=== PATIENT | female | born 1990 | race Caucasian/White ===

== ENCOUNTER 2023-06-09 05:02 | Outpatient (CLI) | payer MEDICAID, SELFPAY ==
[2023-06-09 15:12] LABS: Abs Immature Grans 0.04 10^3/uL (0.0-0.06); Absolute Basophil Count 0.06 10^3/uL (0.0-0.2); Absolute Eosinophil Count 0.19 10^3/uL (0.0-0.7); Absolute Lymphocyte Count 1.92 10^3/uL (1.2-3.4); Absolute Monocyte Count 0.58 10^3/uL (0.1-0.8); Absolute Neutrophil Count 6.59 10^3/uL (1.2-6.7); Basophils % 0.6; HGB 13.5 g/dL (11.2-15.7); Immature Grans % 0.4; Lymphocytes % 20.5; MCH 29.7 pg (27.0-33.0); MCHC 33.8 % (32.0-36.0); MCV 88 fL (80-95); MPV 9.4 fL (8.0-11.0); Monocytes % 6.2; Neutrophils % 70.3; Platelet Count 277 10^3/uL (130-400); RBC 4.54 10^6/uL (3.93-5.22); RDW 11.9 % (11.7-14.6); RDW-SD 38.4 fL; WBC 9.38 10^3/uL (4.4-10.8)
[2023-06-10 09:09] LABS: Hepatitis B Surface Ag Negative (Negative)
[2023-06-10 09:53] LABS: Hepatitis C Ab w Rflx HCV PCR Negative (Negative)
[2023-06-10 10:25] LABS: HIV-1/2 Ag & Ab Screen Negative (Negative)
[2023-06-10 11:31] LABS: Varicella IgG Antibody Positive (See Note)
[2023-06-10 11:41] LABS: Rubella IgG Ab (UVM) Positive (See Note)
[2023-06-11 13:29] LABS: Syphilis IgG w/Reflex Nonreactive (Nonreactive)
== END 2023-06-09 05:03 | disposition home or self-care (01) ==
LOC: LBO 05:02
PROVIDERS: Advanced Practice Midwife; PCP Registered Nurse; Visit Provider Advanced Practice Midwife
DX: Z34.91 Encounter for supervision of normal pregnancy, unspecified, first trimester (principal); Z3A.10 10 weeks gestation of pregnancy
CPT/HCPCS: 36415; 86787; 86803; 86850; 86900; 86901; 87340; 87389; 85025; 86762; 86780

== ENCOUNTER 2023-06-09 15:19 | Outpatient (REF) | payer MEDICAID, SELFPAY ==
--- NOTE | 2023-06-09 14:00 | PAPFT_PTH ---
PATIENT: Stefany Graves LOC: [facility] U#:[id number] AGE/SX: 33/F ROOM: RE06/09/[address]: Fe Johnson : 1990 BED: DIS: 06/09/2023 SPEC #: [id number] RECD: 06/09/23 18:28 STATUS: PAIGEFer REQ #: [id number] PAYAM: 06/09/23 14:[address]: Fe Johnson DEPT: [facility] Cytology RECD BY: Kelsea Cervantes ENTERED: 06/09/23 18:29 SP TYPE: PAPFT OTHR DR: Kezia Pacheco Tissues: 1 - CX/ENDOCX FOR PAP SMEARS Procedures: PAP THIN PREP/UVM Screening HPV DNA PROBE Comments: [id number]
[2023-06-09 16:32] LABS: *AMPHETAMINES SCREEN URINE Negative (Negative); *BARBITURATES SCREEN URINE Negative (Negative); *BENZODIAZEPINES SCREEN URINE Negative (Negative); Cannabinoids THC Negative (Negative); Cocaine Screen,Urine Negative (Negative); METHADONE URINE SCREEN Negative (Negative); OPIATES URINE SCREEN Negative (Negative)
[2023-06-09 16:33] LABS: Tricyclic Antidepressants Negative (Negative)
[2023-06-10 13:46] LABS: Chlamydia Result Negative (Negative); GC Result Negative (Negative)
[2023-06-15 15:22] LABS: Buprenorphine Negative ng/mL (Cutoff: 5.0); Norbuprenorphine Negative ng/mL (Cutoff: 2.5)
== END 2023-06-09 15:20 | disposition home or self-care (01) ==
LOC: LBN 15:19
PROVIDERS: PCP Registered Nurse; Visit Provider Advanced Practice Midwife
DX: Z34.91 Encounter for supervision of normal pregnancy, unspecified, first trimester (principal); R82.998 Other abnormal findings in urine
CPT/HCPCS: 80307; 80348; 87491; 87591; 88142; 87086; 87480; 87510; 87624; 87660

== ENCOUNTER → 2023-06-10 00:29 | Outpatient (CLI) | payer MEDICAID, SELFPAY ==
--- NOTE | 2023-06-10 07:45 | DI.US_ITS ---
Exam(s) US OB 1ST TRIMESTER EXAM: US OB 1ST TRIMESTER CLINICAL HISTORY: ,confirm dating, z34.90. COMPARISON: US POCUS EXAM from 05/19/2023 TECHNIQUE: Transabdominal Transvaginal first trimester obstetrical ultrasound performed. FINDINGS: Sonographic images demonstrate a single intrauterine gestation. A yolk sac and pole are seen. Sonographically assessed gestational age based upon crown-rump length of 3.7 cm is: 10+ 4 weeks Estimated date of delivery based on this ultrasound is: 06 January 2024 Estimated date of delivery based upon LMP: 25 December 2023 heart rate motion is Dopplered at: 161 bpm. No free fluid identified. Both ovaries appear sonographically normal. Pelvic Measurments Uterus: 10.5 x 7.2 x 9.2 cm Rt Ovary: 2.9 x 2.7 x 2.1 cm Lt Ovary: 3.2 x 2.2 x 3.2 cm IMPRESSION: Single live intrauterine gestation with crown-rump length measurements corresponding to 10 weeks 4 da ys. DATA REPOSITORY:
== END ==
PROVIDERS: PCP Registered Nurse; Visit Provider Advanced Practice Midwife
DX: Z34.91 Encounter for supervision of normal pregnancy, unspecified, first trimester (principal)
CPT/HCPCS: 76801

== ENCOUNTER → 2023-08-24 03:35 | Outpatient (CLI) | payer MEDICAID, SELFPAY ==
--- NOTE | 2023-08-24 08:30 | DI.US_ITS ---
Exam(s) US OB 2-3 TRIMESTER EXAM: US OB 2-3 TRIMESTER CLINICAL HISTORY: anatomy survey,Z34.90. TECHNIQUE: Transabdominal obstetrical ultrasound performed. COMPARISON: US POCUS EXAM from 05/19/2023 US US OB 1ST TRIMESTER from 06/10/2023 FINDINGS: Number of fetuses: One. position: Variable Placental grade: 1 Placental location: Fundal no evidence of previa. BIOMETRIC DATA: BPD: 50mm = 20 1+1 weeks HC: 183mm = 20+ 5 weeks AC: 150mm = 20+ 1 weeks FL: 35mm = 20+ 6 weeks Cisterna Magna: 3.4 mm Cerebellum: 2 cm EFW: 361 grms 29% Composite Age: 20+ 5 weeks EDC by US: 06 February 2024 Heart Rate: 145BPM Amniotic fluid : Amount of fluid is within normal limits. ANATOMICAL SURVEY: Four-chambered heart: Unremarkable. LVOT: Unremarkable. RVOT: Unremarkable. Left-sided stomach: Unremarkable. urinary bladder: Unremarkable. Bilateral kidneys: Unremarkable. Three-vessel cord: Unremarkable. Cord insertion: Unremarkable. Posterior fossa:Unremarkable. ventricles: Unremarkable. nose: Unremarkable. lips: Unremarkable. palate: Unremarkable. spine: Unremarkable. Two arms and two legs: Unremarkable. IMPRESSION: 1. Single live intrauterine gestation with composite age of 20 weeks 5 days.. 2. Normal anatomic survey. DATA REPOSITORY:
== END ==
PROVIDERS: PCP Registered Nurse; Visit Provider Advanced Practice Midwife
DX: Z34.92 Encounter for supervision of normal pregnancy, unspecified, second trimester (principal)
CPT/HCPCS: 76805

== ENCOUNTER 2023-10-14 01:49 | Outpatient (CLI) | payer MEDICAID, SELFPAY ==
[2023-10-14 14:33] LABS: HCT 38.8 % (36.0-46.0); HGB 13.1 g/dL (11.2-15.7); MCHC 33.8 % (32.0-36.0); MCV 92 fL (80-95); MPV 9.4 fL (8.0-11.0); Platelet Count 268 10^3/uL (130-400); RBC 4.23 10^6/uL (3.93-5.22); RDW 12.7 % (11.7-14.6); RDW-SD 42.7 fL; WBC 11.35 10^3/uL (4.4-10.8)
[2023-10-14 14:43] LABS: Glucose,1 Hr (Glucola) 126 mg/dL (80-140)
[2023-10-14 15:45] LABS: TSH (W/Ref FT4) 0.97 uIU/mL (0.36-3.74)
== END 2023-10-14 01:50 | disposition home or self-care (01) ==
LOC: LBO 01:49
PROVIDERS: Advanced Practice Midwife; PCP Registered Nurse; Visit Provider Advanced Practice Midwife
DX: Z34.93 Encounter for supervision of normal pregnancy, unspecified, third trimester (principal)
CPT/HCPCS: 36415; 82950; 85027; 84443

== ENCOUNTER 2023-12-09 16:19 | Outpatient (REF) | payer MEDICAID, SELFPAY | END 2023-12-09 16:20 | disposition home or self-care (01) | LOC: LBN 16:19 | PROVIDERS: PCP Registered Nurse; Visit Provider Advanced Practice Midwife | DX: Z34.93 Encounter for supervision of normal pregnancy, unspecified, third trimester (principal); Z36.85 Encounter for antenatal screening for Streptococcus B; Z3A.36 36 weeks gestation of pregnancy | CPT/HCPCS: 87081 ==

== ENCOUNTER 2023-12-17 19:18 | Inpatient (IN) | payer MEDICAID, SELFPAY ==
[2023-12-17 19:46] LABS: HCT 40.6 % (36.0-46.0); HGB 13.8 g/dL (11.2-15.7); MCH 30.7 pg (27.0-33.0); MCV 90 fL (80-95); MPV 10.3 fL (8.0-11.0); Platelet Count 235 10^3/uL (130-400); RBC 4.49 10^6/uL (3.93-5.22); RDW 12.6 % (11.7-14.6); RDW-SD 41.3 fL; WBC 14.27 10^3/uL (4.4-10.8)
--- NOTE | 2023-12-17 19:52 | NUR.NOTE ---
pt arrived for NSt at 1850, ctx palpate as mod/strong. EFM on, RN out of room to page provider. Pt heard yelling. RN requested coworkers page provider, RN preparing to perform SVE as soon as pt consented. SVE =Complete dilation. RN requested co-workers notify provider of exam, pt moved to room 303 . RN asked if MD applications scientist lived closer and should she be notified. RN paged provider with exam results. Nursing shipping room supervisor notified.
[2023-12-18] MEDS: Dibucaine 1% 28 GM TUBE TP
[2023-12-18] MEDS: Hamamelis Leaf/Glycerin 100 EACH BOX PR
[2023-12-18] MEDS: Ibuprofen 600 MG TAB PO ×2 (00:01→17:07)
--- NOTE | 2023-12-18 02:40 | HPE_ITS ---
Date of service: 12/17/23 Time of Service: 20:30 Assessment and Plan Assessment and plan (1) Spontaneous onset of labor: Status: Acute Assessment and plan: While I was en route, Elles membranes ruptured spontaneously for clear fluid and she delivered precipitously, attended by ARNOLD Pisano on hands and knees on the floor. Per Aliya RN's report, she was moved to bed with cord and placenta attached and Dr Rosenberg was at the bedside shortly after . See delivery note. OB-HPI Labor/Delivery History of Present Illness Chief Complaint: Uterine Contractions. HANNAH Calculator Estimated Delivery Date Method WG Current Estimate 01/05/24 Ultrasound #1 Other Estimates 12/25/23 LMP (Certain) 01/02/24 Ultrasound #2 Delivery Date-Baby A 12/17/23 37w 2d Comments: Stefany called and reported regular strong contractions at 1730. She was instructed to come to the center. She presented to the Center in active labor with an urge to push approximately one hour later. Stefany went to her hands and knees upon arrival at her room and began bearing down. I was en route to the hospital after receiving report at 1900 that she was in active labor and delivery seemed imminent, cervical exam was pending. While en route, I received a page that she was fully dilated. Dr. Rosenberg was paged to the delivery room while I was en route and she was present in-house. History of Present Expected Delivery Route/Plan - CNM FOB/ - Alton Graves (3rd baby together) BB no circ Plans unmedicated , likes the shower, GBS POSITIVE, PCN prophylaxis in labor recommended, pt may decline Pt declines e-mycin eye ointment and Hep vaccine, accepts Vit K injection Specific Issues/Plan 1. 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 vegetarian - eats dairy, eggs and fish 3. Increased preeclampsia risk - ASA recommended daily. Pt declines. 4. History of constipation - colace and fiber daily recommended. 5. Urinary retention at 11 wks - catheterized at [facility] and self-catheterization taught. 5a. situation resolved by 13 wks, no self cath needed. 6. Considering tubal . 10/27/23 MD consult: federal consent form signed. If c/s wants tubal at time of delivery. 6a. Pt to check [place] Medicaid to make sure she will still be enrolled for 6w interval sterilization, or vasectomy. 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 Date GA/Weeks # Preg Succ Route Wgt Sex Labor Lgth Anesth esia Location [facility] 09/01/09 40 No Yes vaginal 8 lb 3 oz Male 24 hours, long second s [facility] 05/16/12 40 No Yes vaginal 8 lb 3 oz Female 3 hours Al ice Delivery Date: 09/01/09 Last Updated by: Fe Johnson CNM Intrathecal, Krissy, positive GBS, declined antibiotics. Delivery Date: 05/16/12 Last Updated by: Annamaria Martin Precip deliveryGrace Allergies and Home Medications Allergies Allergy/AdvReac Type Severity Reaction Status Date / Time No Known Allergies Allergy Verified 12/15/23 15:07 Home Medications Medication Instructions Recorded Confirmed Type vitamins no.121-iron 28 tab PO 05/19/23 12/15/23 History mg-folic acid 800 mcg tablet Exam Constitutional Constitutional: severe distress Detailed Labor and Delivery Exam Dilation: 10 station: +2 Richards Score: Cervical Points Exam 0 1 2 3 Dilation Closed 1-2cm 3-4 cm 5-6cm Effacement 0-30% 40-50% 60-70% 80% Consistency Firm Medium Soft Station -3 -2 -1,0 +1,+2 Position Posterior Mid Anterior Amniotic Membrane Status: Intact Monitor Mode: None Fetus A Heart Rate Baseline: 140 Date of Membrane Rupture: 12/17/23 Time of Membrane Rupture: 19:11 Assessment Note: Brief FHTs with doppler Respiratory Exam Respiratory Exam: Normal Cardiovascular Exam Cardiovascular Exam: Normal Exam Exam: Normal Extremities Exam Extremities Exam: Normal Psychiatric Exam Psychiatric Exam: Normal Additional findings Additional findings: Exam deferred due to imminent Results Results Group Beta Strep: Positive Abnormal Lab Findings: Abnormal Labs 12/17/23 19:35 WBC 14.27 H Risk Assessment Risk for Shoulder Dystocia Historical/Initial OB: NEGATIVE FOR: Pelvic Abnormality, Pre- BMI>30, Previous Shoulder Dystocia or Previous Macrosomia 36 Weeks: NEGATIVE FOR: Current Gestational DM, EFW>4500gms or Maternal Weight Gain>40lbs Delivery Plan @ 36wks: Risk for Pre-Eclampsia Date Initiated/Initials: 06/08/23 Yes, if one or more: NEGATIVE FOR: Hx Pre-E/Gest HTN, Chronic HTN, Multiple Gestation, Pre-gestational DM, Renal Disease, Systemic Lupus or APA Syndrome Yes, if 2 or more: POSITIVE FOR: Age>= 35 yrs and >10yr btwn pregnancies; NEGATIVE FOR: Nulliparity, BMI>30, ethinicty, Mother/Sister w/ Pre-E or Previous IUGR Risk for Post- Hemorrhage Initial: NEGATIVE FOR: Multiple Gestation, Previous PPH, Known Clotting Deficiency, Grand Multiparity or Anticoagulation 36 Weeks: NEGATIVE FOR: Anemia, hgb<10, Low platelets(thrombocytopenia), Gestational HTN or Pre-E, Polyhydraminios or EFW>4500gms Counseled re: Active Management: No Risks Reviewed Risks Reviewed Upon Admission: Yes
[2023-12-18] MEDS: Acetaminophen 325 MG TAB 650 MG PO (04:34)
[2023-12-18 06:51] LABS: HCT 36.8 % (36.0-46.0); HGB 12.4 g/dL (11.2-15.7); MCH 30.8 pg (27.0-33.0); MCHC 33.7 % (32.0-36.0); MCV 91 fL (80-95); MPV 10.6 fL (8.0-11.0); Platelet Count 216 10^3/uL (130-400); RBC 4.03 10^6/uL (3.93-5.22); RDW 12.6 % (11.7-14.6); RDW-SD 41.9 fL; WBC 15.11 10^3/uL (4.4-10.8)
[2023-12-18 07:55] VITALS: BP 111/76; PULSE 63; RESP 16; TEMP 36.4; O2SAT 97
--- NOTE | 2023-12-18 10:25 | OBVDS_ITS ---
Date of service: 12/18/23 Time of Service: 10:25 OB Labor/ Delivery Information Baby A Delivery Delivery Method: Spontaneaous Presentation: Cephalic Cephalic Position: Vertex Breech Position: N/A Cord Description-Baby A: 3 Vessels Cord Description Comment: intact, normal configuration Amniotic Fluid: Clear Estimated Blood Loss: 100 Delivery Outcome: Liveborn Transferred: Remains with Mother Providers Doctor: Juliane Rosenberg Nurse: Aliya Lopez Nurse: Rosana Martin Other: Silvino Pritchett Labor/Delivery Information Number of Babies in Womb: 1 Steroids Given: None Reason Steroids Not Administered: N/A and Imminent Delivery Group Beta Strep: Positive Antibiotics Administered: No Rubella Status: Immune Blood Type: O+ Varicella Immunity: Immune Shoulder Dystocia: No Note: Pt began experiencing contractions begining 0700. SROM at home and her contractions intensified while traveling to hospital. Pt arrived to with infant . 's was attended by the hospital staff pharmacist. 's apgars 9/9. i arrived as the was placed Ms. Graves's abdomen. Cord was doubly clamped and cut by me and cord blood was collected. Placenta delivered spontaneously, intact with a normal configuration and 3 vessel cord. Oxytocin 10mg IM administered in right thigh shortly before placenta delivered. His parents intend to name his Yoni. Stages of Labor Onset of Labor Date: 12/17/23 Onset of Labor Time: 09:00 Complete Dilatation Date: 12/17/23 Complete Dilatation Time: 19:00 Labor - Stage 1 Duration: 10 hours and 0 minutes ROM Baby A: 12/17/23 ROM Baby A: 19:11 ROM Total Time- Baby A: [id number] Delivery Date-Baby A: 12/17/23 Infant Delivery Time-Baby A: 19:13 Labor Stage 2 Duration: 13 minutes Placenta Delivery Date-Baby A: 12/17/23 Placenta Delivery Time-Baby A: 19:21 Labor-Stage 3 Duration: 8 minutes Total Length of Labor-Baby A: 10 hours and 13 minutes Placenta Cultured: No Placenta Status: Delivered (Pt admitted to with as she was transfered to bed.) Baby A Gender: Male Gestational Status: Early Term (37-38.6 wks) Gestational Age in Weeks/Days: 37 Weeks and 2 Days weight: 6 lb 6 oz Score-1 Minute Interval(Baby A) Heart Rate-1 minute: 100 BPM or Greater Respiratory Effort- 1 minute: Spontaneous/Strong Cry Muscle Tone-1 minute: Active Movement Reflex Response-1 minute: Prompt Response Color-1 minute: Bluish Hands or Feet Total Score-1 minute: 9 Score-5 Minute Interval(Baby A) Heart Rate- 5 minute: 100 BPM or Greater Respiratory Effort-5 minute: Spontaneous/Strong Cry Muscle Tone-5 minute: Active Movement Reflex Response-5 minute: Prompt Response Color-5 minute: Bluish Hands or Feet Total Score- 5 minute: 9 Interventions Repair of Laceration Type: Perineal and Periurethral, Laceration Extension: First Degree (3-0 Vicryl). Sponge Count Correct: Yes, Sharp Count Correct: Yes. Laceration Repair Note: 1st degree laceration repaired in usual fashion. Periurethral lacs hemostatic and superficial. No repair.
--- NOTE | 2023-12-18 11:09 | OBPPV_ITS ---
Date of service: 12/18/23 Time of Service: 11:09 Assessment and Plan Assessment and plan (1) (spontaneous vaginal delivery): Status: Acute Assessment and plan: Pt arrived with vertex and had spontaneous vaginal delivery of viable male infant. Apgars 9/9. Unremarkable course. successfully (2) Group B Streptococcus carrier, +RV culture, currently : Status: Acute Assessment and plan: Pt arrived and delivered before any GBS prophylaxis was administered. Pt was told that the infant will remain hospitalized for 48hrs for observation. Subjective Subjective Interval history: PPD 1 after laboring at home pt presented to [facility] and the infant's was attended by the staff certified nurse midwife. 's apgars 9/9. i arrived as the was placed on patient's abdomen. Apgars 9/9. Normal 3rd stage. Patient comments: No complaints, Pain well controlled (periurethral lacerations burned with intial voiding. Better since. ) and Tolerating diet Patient's Mood: Relaxed. [place] baby status: Doing well, Nursing well and Strong Bonding Observed [place] feeding status: Exclusively breast feeding Exam Physical Exam Vital signs: Temp Pulse Resp BP Pulse Ox 97.5 F L 63 16 111/76 97 12/18/23 07:55 12/18/23 07:55 12/18/23 07:55 12/18/23 07:55 12/18/23 07:55 Vital Signs Reviewed: Yes Constitutional Constitutional: no acute distress HEENT Exam HEENT Exam: Normal Respiratory Exam Respiratory Exam: Normal Cardiovascular Exam Cardiovascular Exam: Normal Abdominal Exam Abdomen: Tender (mild tenderness with palpation of fundus. ) Fundal Exam Fundus: Below Umbilicus and Firm Exam Patient deferred: perineal exam Extremities Exam Extremity Exam: Normal; negative Edema Back/Spine/Pelvis Exam Back Exam: Not Done Skin Exam Skin Exam: Normal Neurological Exam Neurological Exam: Normal Psychiatric Exam Psychiatric Exam: Normal Results Hemoglobin/Hematocrit: Hgb 12.4 g/dL (11.2-15.7) 12/18/23 06:40 Hct 36.8 % (36.0-46.0) 12/18/23 06:40 Abnormal Lab Findings: Abnormal Labs 12/17/23 12/18/23 19:35 06:40 WBC 14.27 H 15.11 H
[2023-12-18 11:55] VITALS: BP 119/78; PULSE 80; RESP 16; TEMP 36.3; O2SAT 95
--- NOTE | 2023-12-18 13:42 | W.PM.OBPNV1 ---
Date of service: 12/18/23 Time of Service: 13:42 Subjective Subjective Patient comments: No complaints baby status: Doing well feeding status: Exclusively breast feeding Exam Physical Exam Vital signs: Temp Pulse Resp BP Pulse Ox 97.5 F L 63 16 111/76 97 12/18/23 07:55 12/18/23 07:55 12/18/23 07:55 12/18/23 07:55 12/18/23 07:55 Vital Signs Reviewed: Yes Constitutional Constitutional: no acute distress Respiratory Exam Respiratory Exam: Normal Cardiovascular Exam Cardiovascular Exam: Normal Fundal Exam Fundus: Below Umbilicus and Firm Extremities Exam Extremity Exam: Normal Back/Spine/Pelvis Exam Back Exam: Normal Skin Exam Skin Exam: Normal Psychiatric Exam Psychiatric Exam: Normal Results Hemoglobin/Hematocrit: Hgb 12.4 g/dL (11.2-15.7) 12/18/23 06:40 Hct 36.8 % (36.0-46.0) 12/18/23 06:40 Abnormal Lab Findings: Abnormal Labs 12/17/23 12/18/23 19:35 06:40 WBC 14.27 H 15.11 H
[2023-12-18] MEDS: Calcium Carbonate *TUMS* 500 MG CHEW PO (15:21)
[2023-12-18 17:00] VITALS: BP 117/74; PULSE 71; RESP 16; TEMP 36.8; O2SAT 97
[2023-12-18 20:00] VITALS: BP 115/74; PULSE 72; RESP 18; TEMP 36.9
[2023-12-19 04:30] VITALS: BP 113/76; PULSE 68; RESP 16; TEMP 36.6; O2SAT 98
[2023-12-19 08:33] VITALS: BP 113/71; PULSE 71; RESP 16; TEMP 36.5; O2SAT 98
--- NOTE | 2023-12-19 11:35 | W.PM.OBPNV1 ---
Date of service: 12/19/23 Time of Service: 11:35 Assessment and Plan Assessment and plan (1) (spontaneous vaginal delivery): Status: Acute (2) Group B Streptococcus carrier, +RV culture, currently : Status: Acute Assessment and plan: No PCN prophylaxis given secondary to rapidity of after arrival on Center. Subjective Subjective Interval history: PPD2 rapid of viable male who will be named Yoni. Mother GBS + RV cx who did not receive PCN prophylaxis. Family would like to be discharged to home. Will await decision by Peds regarding timing of infant's discharge. Patient comments: No complaints, Pain well controlled, Tolerating diet and Bowel Movement baby status: Doing well, Nursing well, Rooming in and Strong Bonding Observed feeding status: Exclusively breast feeding Exam Physical Exam Vital signs: Temp Pulse Resp BP Pulse Ox 97.7 F 71 16 113/71 98 12/19/23 08:33 12/19/23 08:33 12/19/23 08:33 12/19/23 08:33 12/19/23 08:33 Vital Signs Reviewed: Yes Constitutional Constitutional: no acute distress Comments: Comfortable. No issues with perineal repair or discomfort at periurethral lacerations HEENT Exam HEENT Exam: Normal Neck Exam Neck Exam: Normal Respiratory Exam Respiratory Exam: Normal Cardiovascular Exam Cardiovascular Exam: Normal Abdominal Exam Comments: non-tender. Fundal Exam Fundus: Below Umbilicus and Firm Rectal Exam Rectal Exam: Not Done Exam Patient deferred: external exam Perineum: Repair Intact External: Present normal urethra appearance Extremities Exam Extremity Exam: Normal Skin Exam Skin Exam: Normal Psychiatric Exam Psychiatric Exam: Normal Results Hemoglobin/Hematocrit: Hgb 12.4 g/dL (11.2-15.7) 12/18/23 06:40 Hct 36.8 % (36.0-46.0) 12/18/23 06:40 Abnormal Lab Findings: Abnormal Labs 12/17/23 12/18/23 19:35 06:40 WBC 14.27 H 15.11 H
--- NOTE | 2024-01-19 10:54 | DSE_ITS ---
Date of service: 12/19/23 Time of Service: 16:00 DS: Diagnosis Discharge Diagnosis (1) (spontaneous vaginal delivery): Status: Acute Asessment and Plan: Caring for baby independently. Pain is managed well with oral analgesics. Voiding without difficulty. well. Stefany was seen by Dr Rosenberg this morning and exam performed. Discharge was pending pediatrics evaluation. The Baby did not pass the congenital heart screening and a decision has been made for the baby to be transferred to [facility] today. A - stable mother and baby , Post day 1 P - Discharge to home today. Routine post instructions. [facility] Stefany will accompany her baby to [facility] where she will receive neonatology care. Discharge Plan Disposition Patient Disposition: Home Condition: Good Discharge Details Reason For Visit: Term Delivery Admit Date/Time: 12/17/23 19:18 Admit Provider: Fe Johnson Attending Provider: Fe Johnson Primary Care Provider: Kezia Pacheco Home Meds and New Rx's Prescriptions: No Action PNV no.578-[id number]-hzoje acid 28 mg iron- 800 mcg tablet PO Discharge Instructions Stand Alone Forms: BC Instructions, BC Post Vaginal Deliver Activity:: Activity as Tolerated Equipment/Supplies:: No Equipment Needed Diet:: As Tolerated Discharge Orders Discharge Orders: Discharge Order (Routine); Ordered 12/19/23 Ordered By: Fe Johnson Discharge Data Discharge Date/Time-TO BE ENTERED AT DEPARTURE: 12/19/23 17:10 OB:DS Summary Summary Vaginal Delivery Method: Spontaneaous Episiotomy Description: None Laceration Description: Perineal and Periurethral Laceration Extension: First Degree (3-0 Vicryl) Contraception Discussed Contraception Discussed: No, [place] Gender-Baby A: Male weight: 6 lb 6 oz Status at Discharge Functional status at discharge: independent ambulation Overall status at discharge: patient is back to baseline Mental Status: mental status grossly normal Speech and Movement: speech and movement normal Mood: congruent mood Affect: normal affect Quality:SDOH Health Related Social Needs: No Data to Display Exam Physical Exam Vital signs: Temp Pulse Resp BP Pulse Ox 97.7 F 71 16 113/71 98 12/19/23 08:33 12/19/23 08:33 12/19/23 08:33 12/19/23 08:33 12/19/23 08:33 PFSH All Active Problems (Updated 12/20/23 @ 00:05 by TERRENCE MARCELINO) (spontaneous vaginal delivery) (Acute) 12/17/23. Germain Vallejo. 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 Date GA/Weeks # Preg Succ Route Wgt Sex Labor Lgth Anesth esia Location [facility] 09/01/09 40 No Yes vaginal 8 lb 3 oz Male 24 hours, long second s tage [facility] 05/16/12 40 No Yes vaginal 8 lb 3 oz Female 3 hours Al ice [facility] Day 12/17/23 37 No Yes vaginal 6 lb 6 oz Male 10hrs 13min MD Gera Delivery Date: 09/01/09 Last Updated by: Fe Johnson CNM Intrathecal, Krissy, positive GBS, declined antibiotics. Delivery Date: 05/16/12 Last Updated by: Annamaria Martin Precip deliveryGrace Delivery Date: 12/17/23 Last Updated by: JALEN Saunders; arrived at hospital with baby DS: Data Vitals/I&O Vitals and I&O: Vital Signs Temperature 97.7 F 12/19/23 08:33 Temperature Source Oral 12/19/23 08:33 Pulse 71 12/19/23 08:33 Pulse Rhythm Regular 12/19/23 08:36 Respiratory Rate 16 12/19/23 08:33 Blood Pressure 113/71 12/19/23 08:33 Blood Pressure Mean 85 12/19/23 08:33 Pulse Oximetry 98 12/19/23 08:33 Pain Level 4 12/18/23 17:07
== END 2023-12-19 17:10 | disposition home or self-care (01) | DRG 807 ==
LOC: BCD 19:23 → OBS 19:23
PROVIDERS: Admitting Provider Advanced Practice Midwife; PCP Registered Nurse; Visit Provider Advanced Practice Midwife
DX: O99.824 Streptococcus B carrier state complicating childbirth (principal); Z37.0 Single live birth; O62.3 Precipitate labor; Z3A.37 37 weeks gestation of pregnancy; O70.0 First degree perineal laceration during delivery
CPT/HCPCS: 36415; 85027; 86850; 86900; 86901; J2003